=== PATIENT | male | born 1990 | race Two or more races ===

== ENCOUNTER 2018-07-02 20:41 | Observation (INO) | payer SELFPAY ==
[2018-07-03] MEDS ORDERED: KETOROLAC TROMETHAMINE INJ/PF 30 MG/1 ML SDV IV ONE (00:52)
[2018-07-03] MEDS ORDERED: NORMAL SALINE 1000 ML 1,000 ML IV ONE (00:52)
--- NOTE | 2018-07-03 00:52 | ER Document Report ---
ED General - General Chief Complaint: Leg Pain Stated Complaint: RIGHT LEG PAIN Time Seen by Provider: 07/03/18 00:00 TRAVEL OUTSIDE OF THE [place] IN LAST 30 DAYS: No - HPI Notes: Patient is a 28-year-old male with a history of gout who presents to the ED complaining of right knee pain over the last 5 days with fever over the last 3. Patient states he has noticed swelling and warmth to the knee. Patient states that he is unable to bend his knee because of the pain. He is still able to eat and drink, but does have a decreased p.o. intake. He is urinating normally and having normal bowel movements. Denies any injury. Denies any drug allergies. Patient states that he had gout in his knee once before, but this pain is a lot worse. Denies any IV drug use. Denies any headache, fever, neck pain, URI, sore throat, chest pain, palpitations, syncope, cough, shortness of breath, wheeze, dyspnea, abdominal pain, nausea/vomiting/diarrhea, urinary retention, dysuria, hematuria, urethral discharge, loss of control of bowel or bladder, numbness/tingling, saddle anesthesia, muscle paralysis/ weakness, or rash. - Related Data Allergies/Adverse Reactions: No Known Allergies Allergy (Verified 08/18/16 20:19) Past Medical History - Social History Smoking Status: Never Smoker Chew tobacco use (# tins/day): Yes Frequency of alcohol use: None Drug Abuse: None Family History: Reviewed & Not Pertinent Patient has suicidal ideation: No Patient has homicidal ideation: No - Past Medical History Cardiac Medical History: Reports: Hx Hypercholesterolemia, Hx Hypertension Renal/ Medical History: Denies: Hx Peritoneal Dialysis Musculoskeletal Medical History: Reports Hx Gout - Bilateral ankles - Immunizations Immunizations up to date: Yes Hx Diphtheria, Pertussis, Tetanus Vaccination: Yes - 08/07/2011 Review of Systems - Review of Systems -: Yes All other systems reviewed and negative Physical Exam - Vital signs Vitals: Temp Pulse BP Pulse Ox 98.5 F 121 H 149/96 H 96 07/02/18 21:01 07/02/18 21:01 07/02/18 21:01 07/02/18 21:01 - Notes Notes: PHYSICAL EXAMINATION: GENERAL: Well-appearing, well-nourished and in no acute distress. LUNGS: Breath sounds clear to auscultation bilaterally and equal. No wheezes rales or rhonchi. HEART: Regular rate and rhythm without murmurs, rubs, gallops. Musculoskeletal: Rt knee: + swelling, mild erythema, warmth, and tenderness associated. No obvious ecchymosis or deformity. LROM to passive/active. Strength 5+/5. N/V intact distal. No bony tenderness. No calf tenderness. Extremities: No cyanosis, clubbing, or edema b/l. Peripheral pulses 2+. Capillary refill less than 3 seconds. Noy neg b/l. NEUROLOGICAL: Normal speech. Normal sensory. PSYCH: Normal mood, normal affect. SKIN: see above. Course - Re-evaluation Re-evalutation: 07/03/18 00:51 Pt is tachycardic at 120 during my eval with a warm tender left knee with limited range of motion. Concern for septic joint vs gout. We will obtain labs and imaging to further evaluate. 07/03/18 03:58 XR unremarkable. Noted effusion on exam. CRP and ESR significantly elevated with white count of 19 and febrile at 100.4 tylenol ordered. Reviewed with Dr. treviño- we will attempt knee tap for fluid testing. 07/03/18 05:34 Dr. Treviño and myself were unsuccessful at the joint tap. Consulted Dr. Rouse who will be in to eval the patient soon. 07/03/18 06:46 Dr. Rouse eval'd the patient and will keep for obs. Pt in agreement. - Vital Signs Vital signs: Temp Pulse Resp BP Pulse Ox 100.4 F 109 H 16 140/82 H 96 07/03/18 01:34 07/03/18 01:34 07/03/18 01:34 07/03/18 01:34 07/03/18 01:34 - Laboratory Result Diagrams: 07/03/18 01:35 07/03/18 01:35 Laboratory results interpreted by me: 07/03/18 07/03/18 01:35 01:35 WBC 19.0 H Absolute Neutrophils 14.4 H ESR 77 H Chloride 96 L Glucose 113 H Calcium 10.3 H Total Bilirubin 1.9 H Direct Bilirubin 0.9 H C-Reactive Protein 230.8 H Total Protein 8.7 H Discharge - Discharge Clinical Impression: Right knee pain Qualifiers: Chronicity: acute Qualified Code(s): M25.561 - Pain in right knee Condition: Stable Disposition: ADMITTED OBSERVATION Admitting Provider: Dr. Rouse, Ortho Unit Admitted: Surgical Floor
[2018-07-03 01:50] LABS: ABSOLUTE BASOPHILS # (AUTO) 0.1 10^3/uL (0.0-0.2); ABSOLUTE LYMPHOCYTES (AUTO) 3.1 10^3/uL (0.5-4.7); ABSOLUTE MONOCYTES (AUTO) 1.4 10^3/uL (0.1-1.4); ABSOLUTE NEUT (AUTO) 14.4 10^3/uL (1.7-8.2); BASOPHILS % (AUTO) 0.4 % (0-2); EOSINOPHILS % (AUTO) 0.1 % (0-6); HEMATOCRIT 42.5 % (37.9-51.0); HEMOGLOBIN 14.7 g/dL (13.5-17.0); LYMPHOCYTES % (AUTO) 16.5 % (13-45); MEAN CORPUSCULAR HEMOGLOBIN 28.5 pg (27.0-33.4); MEAN CORPUSCULAR HGB CONC 34.7 g/dL (32.0-36.0); MEAN CORPUSCULAR VOLUME 82 fl (80-97); MONOCYTES % (AUTO) 7.1 % (3-13); PLATELET COUNT 198 10^3/uL (150-450); RED BLOOD COUNT 5.16 10^6/uL (4.35-5.55); RED CELL DISTRIBUTION WIDTH 13.8 % (11.5-14.0); SEGMENTED NEUTROPHILS % (AUTO) 75.9 % (42-78); TOTAL CELLS COUNTED % (AUTO) 100 %
--- NOTE | 2018-07-03 02:01 | RADIOLOGY REPORT (SQ) ---
EXAM DESCRIPTION: XR KNEE 4 OR MORE VIEWS COMPLETED DATE/TME: 07/03/2018 00:44 CLINICAL HISTORY: 28 years, Male, swelling, pain, warmth COMPARISON: None. NUMBER OF VIEWS: Four TECHNIQUE: Four views of the right knee LIMITATIONS: None. FINDINGS: No acute fracture or dislocation. Joint spaces are preserved. No large joint effusion is detected. IMPRESSION: No acute fracture or dislocation 2010 [employer]- All Rights Reserved
[2018-07-03 02:36] LABS: ERYTHROCYTE SEDIMENTATION RATE 77 mm/hr (0-15)
[2018-07-03 02:52] LABS: ALANINE AMINOTRANSFERASE 44 U/L (21-72); ALBUMIN 4.5 g/dL (3.5-5.0); ALKALINE PHOSPHATASE 94 U/L (38-126); ANION GAP 17 (5-19); ASPARTATE AMINO TRANSFERASE 34 U/L (17-59); BILIRUBIN,DIRECT 0.9 mg/dL (0.0-0.4); BILIRUBIN,TOTAL 1.9 mg/dL (0.2-1.3); BLOOD UREA NITROGEN 9 mg/dL (7-20); CALCIUM 10.3 mg/dL (8.4-10.2); CARBON DIOXIDE 25 mmol/L (22-30); CHLORIDE 96 mmol/L (98-107); GLUCOSE 113 mg/dL (75-110); POTASSIUM 4.8 mmol/L (3.6-5.0); SODIUM 137.5 mmol/L (137-145); TOTAL PROTEIN 8.7 g/dL (6.3-8.2)
[2018-07-03 03:13] LABS: C-REACTIVE PROTEIN 230.8 mg/L (<10.0)
[2018-07-03] MEDS ORDERED: ACETAMINOPHEN 325 MG TABLET PO ONE (03:55)
[2018-07-03] MEDS ORDERED: LIDOCAINE 1% INJ-PF (10 MG/ML) 30 ML SDV INJ ONE (03:56)
[2018-07-03] MEDS ORDERED: ONDANSETRON 4 MG TAB.RAPDIS SL PRN (07:14)
[2018-07-03] MEDS: RINGERS SOLUTION,LACTATED 1,000 ML IV PRN ×3 (07:59→23:40)
[2018-07-03] MEDS: IBUPROFEN 800 MG in NORMAL SALINE 250 ML IV SCH ×2 (09:35→17:41)
[2018-07-04] MEDS: IBUPROFEN 800 MG in NORMAL SALINE 250 ML IV SCH ×3 (02:06→18:34)
--- NOTE | 2018-07-04 06:01 | PDOC PROGRESS REPORT ---
Subjective Progress Note for:: 07/04/18 Reason For Visit: RIGHT KNEE PAIN Right knee pain and functional disability. Suspected underlying gout arthropathy. Patient reports slight improvement from yesterday on IV Caldolor. Physical Exam Vital Signs: Temp Pulse Resp BP Pulse Ox 36.7 C 78 18 130/80 H 100 07/04/18 00:00 07/04/18 00:00 07/04/18 00:00 07/04/18 00:00 07/04/18 00:00 Intake & Output 07/02/18 07/03/18 07/04/18 06:59 06:59 06:59 Intake Total 2500 Output Total 300 Balance 2200 Physical Exam: Overweight middle-aged male lying in bed with the right upper extremity and knee elevated on a pillow and slightly flexed. General appearance: PRESENT: no acute distress, mild distress, well-nourished Head exam: PRESENT: normocephalic Respiratory exam: PRESENT: unlabored Cardiovascular exam: PRESENT: RRR Pulses: PRESENT: +1 pedal pulses bilateral Vascular exam: PRESENT: normal capillary refill GI/Abdominal exam: PRESENT: soft Rectal exam: PRESENT: deferred Extremities exam: PRESENT: other - Right lower extremity elevated on a pillow and flexed. Passive range of motion seems to be improved from yesterday. There is no erythema. Distal neurovascular examination is intact. Neurological exam: PRESENT: alert, awake, oriented to person, oriented to place , oriented to time, oriented to situation. ABSENT: motor sensory deficit Psychiatric exam: PRESENT: appropriate affect, normal mood. ABSENT: homicidal ideation, suicidal ideation Skin exam: PRESENT: dry, intact, warm. ABSENT: cyanosis, rash Results Impressions: Knee X-Ray 07/03/18 00:44 IMPRESSION: No acute fracture or dislocation 2010 [employer]- All Rights Reserved Status: Imported from PACS Assessment & Plan - Diagnosis (1) Acute gouty arthropathy Is this a current diagnosis for this admission?: Yes Plan: 28-year-old male with a previous history of gout and now with what appears to be an acute arthropathy of the right knee. Differential diagnosis includes gout arthropathy versus a septic polyarthritis. At this point the patient's laboratory values seem to be stable and he remains afebrile. There is been a slight improvement on IV nonsteroidal anti-inflammatory medication. Plan will be to continue observation and begin physical therapy. - Time Time Spent with patient: 15-24 minutes Anticipated discharge: Home Within: Other
[2018-07-04] MEDS: MORPHINE SULFATE 10 MG/ML INJ IV PRN (08:08)
[2018-07-04] MEDS: RINGERS SOLUTION,LACTATED 1,000 ML IV PRN (21:37)
[2018-07-05] MEDS: IBUPROFEN 800 MG in NORMAL SALINE 250 ML IV SCH ×2 (01:33→10:25)
--- NOTE | 2018-07-05 06:50 | PDOC PROGRESS REPORT ---
Subjective Progress Note for:: 07/05/18 Reason For Visit: RIGHT KNEE PAIN 28-year-old male with an resumed acute gouty arthropathy of the right knee. Patient's been started on IV nonsteroidal anti-inflammatory medication with minimal improvement in his clinical presentation and passive range of motion of his knee. He remains afebrile. Physical Exam Vital Signs: Temp Pulse Resp BP Pulse Ox 37.0 C 82 18 130/76 H 100 07/05/18 03:34 07/05/18 03:34 07/05/18 03:34 07/05/18 03:34 07/05/18 03:34 Intake & Output 07/03/18 07/04/18 07/05/18 06:59 06:59 06:59 Intake Total 4230 2879 Output Total 1500 1125 Balance 2730 1754 General appearance: PRESENT: no acute distress, mild distress, well-developed Head exam: PRESENT: normocephalic Respiratory exam: PRESENT: unlabored Cardiovascular exam: PRESENT: RRR Extremities exam: PRESENT: other - Passive range of motion of the right knee remains painful. Results Impressions: Knee X-Ray 07/03/18 00:44 IMPRESSION: No acute fracture or dislocation 2010 [employer] All Rights Reserved Status: Imported from PACS Assessment & Plan - Diagnosis (1) Acute gouty arthropathy Is this a current diagnosis for this admission?: Yes Plan: Patient with not a clear improvement in his clinical presentation. Patient will be started on Indocin and labs will be repeated. - Time Time Spent with patient: 15-24 minutes Anticipated discharge: Other Within: Other
[2018-07-05] MEDS: MORPHINE SULFATE 10 MG/ML INJ IV PRN (07:08)
[2018-07-05 07:40] LABS: ABSOLUTE BASOPHILS # (AUTO) 0.1 10^3/uL (0.0-0.2); ABSOLUTE EOSINOPHILS # (AUTO) 0.1 10^3/uL (0.0-0.6); ABSOLUTE LYMPHOCYTES (AUTO) 3.2 10^3/uL (0.5-4.7); ABSOLUTE MONOCYTES (AUTO) 0.6 10^3/uL (0.1-1.4); ABSOLUTE NEUT (AUTO) 6.7 10^3/uL (1.7-8.2); BASOPHILS % (AUTO) 0.7 % (0-2); EOSINOPHILS % (AUTO) 1.3 % (0-6); HEMATOCRIT 34.9 % (37.9-51.0); LYMPHOCYTES % (AUTO) 29.7 % (13-45); MEAN CORPUSCULAR HEMOGLOBIN 28.6 pg (27.0-33.4); MEAN CORPUSCULAR HGB CONC 34.9 g/dL (32.0-36.0); MEAN CORPUSCULAR VOLUME 82 fl (80-97); MONOCYTES % (AUTO) 5.7 % (3-13); PLATELET COUNT 165 10^3/uL (150-450); RED BLOOD COUNT 4.26 10^6/uL (4.35-5.55); RED CELL DISTRIBUTION WIDTH 13.7 % (11.5-14.0); SEGMENTED NEUTROPHILS % (AUTO) 62.6 % (42-78); TOTAL CELLS COUNTED % (AUTO) 100 %; WHITE BLOOD COUNT 10.6 10^3/uL (4.0-10.5)
[2018-07-05 07:43] LABS: HEMOGLOBIN 12.2 g/dL (13.5-17.0)
[2018-07-05 07:59] LABS: ANION GAP 8 (5-19); BLOOD UREA NITROGEN 10 mg/dL (7-20); C-REACTIVE PROTEIN 63.8 mg/L (<10.0); CALCIUM 9.4 mg/dL (8.4-10.2); CARBON DIOXIDE 28 mmol/L (22-30); CHLORIDE 103 mmol/L (98-107); GLUCOSE 99 mg/dL (75-110); POTASSIUM 4.4 mmol/L (3.6-5.0); SODIUM 138.9 mmol/L (137-145)
[2018-07-05 08:26] LABS: ERYTHROCYTE SEDIMENTATION RATE 66 mm/hr (0-15)
[2018-07-05] MEDS: INDOMETHACIN 50 MG CAPSULE PO SCH ×2 (14:52→22:10)
[2018-07-06] MEDS: INDOMETHACIN 50 MG CAPSULE PO SCH ×2 (05:40→13:19)
[2018-07-06] MEDS: MORPHINE SULFATE 10 MG/ML INJ IV PRN (08:11)
[2018-07-06 13:11] VITALS: BP 134/79
--- NOTE | 2018-07-06 13:52 | PDOC PROGRESS REPORT ---
Subjective Progress Note for:: 07/06/18 Subjective:: Patient states significant improvement since taking indomethacin. Describes swelling to be significantly improved. Able to ambulate without excruciating pain he had before. Patient is ready to be discharged today. Reason For Visit: RIGHT KNEE PAIN Physical Exam Vital Signs: Temp Pulse Resp BP Pulse Ox 37.1 C 79 18 134/79 H 98 07/06/18 12:45 07/06/18 12:45 07/06/18 12:45 07/06/18 12:45 07/06/18 12:45 Intake & Output 07/05/18 07/06/18 07/07/18 06:59 06:59 06:59 Intake Total 3546 650 Output Total 1725 1300 Balance 1821 -650 Adult Front & Back Image: 1 - Patient is some mild soreness with palpation but stable to varus and valgus stressing and able to extend to about -10 degrees of extension to about 90 degrees of flexion. Some mild swelling around the knee but no palpable effusion noted. He is neurovascular intact distally. Results Laboratory Results: 07/05/18 07:20 07/05/18 07:20 Impressions: Knee X-Ray 07/03/18 00:44 IMPRESSION: No acute fracture or dislocation 2010 [employer]- All Rights Reserved Assessment & Plan - Diagnosis (1) Acute gouty arthropathy Is this a current diagnosis for this admission?: Yes Plan: 28-year-old gentleman who responded to p.o. indomethacin and previous to that IV Caldolor. Agree with that the patient's clinical improvement is unlikely to gouty arthropathy that responded to medication. Patient can be discharged today. Prescription for indomethacin will be provided and the patient understands to follow-up in 1-[address] Rouse.
[2018-07-06 14:05] LABS: ABSOLUTE EOSINOPHILS # (AUTO) 0.2 10^3/uL (0.0-0.6); ABSOLUTE LYMPHOCYTES (AUTO) 2.3 10^3/uL (0.5-4.7); ABSOLUTE MONOCYTES (AUTO) 0.6 10^3/uL (0.1-1.4); ABSOLUTE NEUT (AUTO) 5.2 10^3/uL (1.7-8.2); BASOPHILS % (AUTO) 0.5 % (0-2); EOSINOPHILS % (AUTO) 1.9 % (0-6); HEMATOCRIT 34.7 % (37.9-51.0); HEMOGLOBIN 11.9 g/dL (13.5-17.0); LYMPHOCYTES % (AUTO) 27.5 % (13-45); MEAN CORPUSCULAR HEMOGLOBIN 28.3 pg (27.0-33.4); MEAN CORPUSCULAR HGB CONC 34.4 g/dL (32.0-36.0); MEAN CORPUSCULAR VOLUME 82 fl (80-97); MONOCYTES % (AUTO) 7.2 % (3-13); PLATELET COUNT 181 10^3/uL (150-450); RED BLOOD COUNT 4.22 10^6/uL (4.35-5.55); RED CELL DISTRIBUTION WIDTH 13.2 % (11.5-14.0); SEGMENTED NEUTROPHILS % (AUTO) 62.9 % (42-78); TOTAL CELLS COUNTED % (AUTO) 100 %; WHITE BLOOD COUNT 8.3 10^3/uL (4.0-10.5)
[2018-07-06 14:31] LABS: ANION GAP 7 (5-19); BLOOD UREA NITROGEN 10 mg/dL (7-20); C-REACTIVE PROTEIN 49.5 mg/L (<10.0); CALCIUM 9.2 mg/dL (8.4-10.2); CARBON DIOXIDE 32 mmol/L (22-30); CHLORIDE 101 mmol/L (98-107); GLUCOSE 83 mg/dL (75-110); POTASSIUM 4.3 mmol/L (3.6-5.0); SODIUM 140.1 mmol/L (137-145); URIC ACID 7.9 mg/dL (3.5-8.5)
[2018-07-06 14:43] LABS: ERYTHROCYTE SEDIMENTATION RATE 66 mm/hr (0-15)
== END 2018-07-06 15:16 | disposition home or self-care (01) ==
LOC: ER 20:41 → INTOOBSV 07-03 06:53 → EH 07-03 06:53 → OBSVTOIN 07-03 06:53 → 2S 07-03 12:45
PROVIDERS: ADMIT Orthopaedic Surgery; ATTEND Orthopaedic Surgery
DX: M10.9 Gout, unspecified (principal); E66.3 Overweight; R00.0 Tachycardia, unspecified; Z68.42 Body mass index [BMI] 45.0-49.9, adult; Z72.0 Tobacco use; Z87.39 Personal history of other diseases of the musculoskeletal system and connective tissue
CPT/HCPCS: 99284; 96374; 36415 ×3; 87040; 87205; 87070; 84550; 85025 ×3; 85652 ×3; 87075; 86140 ×3; 80048 ×2; 80053; 73564; 97110; 97116; 97163; G0378 ×5; J3490 ×3; J1885; J2270 ×3; J7050 ×2; J1741 ×2

== ENCOUNTER 2019-08-10 01:28 | Emergency (ER) | payer SELFPAY ==
--- NOTE | 2019-08-10 01:21 | ER Document Report ---
ED Hand/Wrist Injury - General Chief Complaint: Hand Swelling Stated Complaint: RIGHT HAND SWOLLEN/PAIN Time Seen by Provider: 08/10/19 01:08 EST Primary Care Provider: JOSÉ MIGUEL BRYANT DO [ACTIVE STAFF] - 08/11/19 Mode of Arrival: Ambulatory Information source: Patient Notes: Patient presents complaining of right hand pain swelling and redness. Patient denies any injury. Patient is right-hand dominant. Patient does report a history of gout although he has never had gout affect the joints of his hand before. Patient denies any fever. TRAVEL OUTSIDE OF THE [place] IN LAST 30 DAYS: No - HPI Injury to: Hand Onset: Other - 3 days Timing: Worse Quality of pain: Achy Pain Level: 3 Context: Swelling - Related Data Allergies/Adverse Reactions: No Known Allergies Allergy (Verified 08/18/16 20:19) Home Medications: Allopurinol Past Medical History - General Information source: Patient - Social History Smoking Status: Never Smoker Frequency of alcohol use: None Drug Abuse: None Occupation: agriculture mechanic Lives with: Family Family History: Reviewed & Not Pertinent Patient has suicidal ideation: No Patient has homicidal ideation: No - Past Medical History Cardiac Medical History: Reports: Hx Hypercholesterolemia, Hx Hypertension Renal/ Medical History: Denies: Hx Peritoneal Dialysis Musculoskeletal Medical History: Reports Hx Gout - Bilateral ankles Psychiatric Medical History: Denies: Hx Depression Surgical Hx: Negative - Immunizations Immunizations up to date: Yes Hx Diphtheria, Pertussis, Tetanus Vaccination: Yes - 08/07/2011 Review of Systems - Review of Systems Constitutional: No symptoms reported. denies: Fever, Recent illness EENT: No symptoms reported Cardiovascular: No symptoms reported Respiratory: No symptoms reported Gastrointestinal: No symptoms reported. denies: Nausea, Vomiting Genitourinary: No symptoms reported Male Genitourinary: No symptoms reported Musculoskeletal: Gout, Other - Right hand pain and swelling Skin: Change in color - Erythema the right hand Hematologic/Lymphatic: No symptoms reported Neurological/Psychological: No symptoms reported Physical Exam - Vital signs Vitals: Temp Pulse Resp BP Pulse Ox 98.0 F 75 20 170/113 H 98 08/10/19 01:33 EDT 08/10/19 01:33 EDT 08/10/19 01:33 EDT 08/10/19 01:33 EDT 08/10/19 01:33 EDT - General General appearance: Appears well, Alert In distress: None - HEENT Head: Normocephalic, Atraumatic Eyes: Normal Nasal: Normal Mouth/Lips: Normal Neck: Normal - Respiratory Respiratory status: No respiratory distress - Cardiovascular Pulses: Normal: Radial - Back Back: Normal - Extremities General upper extremity: Tender - right hand General lower extremity: Normal inspection, Normal strength Shoulder: Normal, Nontender Arm: Normal, Nontender Elbow: Normal, Nontender Forearm: Normal, Nontender Wrist: Normal, Nontender Hand: Tender - Right hand tenderness over the second third and fourth metacarpals with overlying erythema and edema, Swelling. No: Deformity, Laceration, Nail injury, Tendon deficit - Neurological Neuro grossly intact: Yes Cognition: Normal [place] Coma Scale Eye Opening: Spontaneous [place] Coma Scale Verbal: Oriented [place] Coma Scale Motor: Obeys Commands [place] Coma Scale Total: 15 - Psychological Associated symptoms: Normal affect, Normal mood - Skin Skin Temperature: Warm Skin Moisture: Dry Skin Color: Erythema - Erythema with calor over the dorsal aspect of right hand over the second third and fourth metacarpals Course - Re-evaluation Re-evalutation: 08/10/19 03:15 Patient with erythema and calor to the right hand. 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 Patient without any obvious injury to the hand. Patient without any fever and is nontoxic in appearance. No concern for tenosynovitis at this time. No concern for fracture or osteomyelitis. Patient advised of symptoms that he should return immediately for. Patient verbalized understanding and is agreeable plan of care. Consulted with Dr. Hess regarding patient's disposition and plan of care. - Vital Signs Vital signs: Temp Pulse Resp BP Pulse Ox 98.6 F 64 16 128/74 H 98 08/10/19 04:09 08/10/19 04:09 08/10/19 04:09 08/10/19 04:09 08/10/19 03:01 - Laboratory Result Diagrams: 08/10/19 01:33 EST 08/10/19 01:33 EST Laboratory results interpreted by me: 08/10/19 08/10/19 01:33 EST 01:33 EST WBC 10.9 H ESR 27 H Glucose 119 H C-Reactive Protein 39.4 H Labs- Entire Visit 08/10/19 08/10/19 01:33 EST 01:33 EST WBC 10.9 H RBC 4.94 Hgb 13.9 Hct 40.2 MCV 81 MCH 28.1 MCHC 34.6 RDW 12.9 Plt Count 172 Lymph % (Auto) 23.7 [place] % (Auto) 6.0 Eos % (Auto) 1.0 Baso % (Auto) 0.3 Absolute Neuts (auto) 7.5 Absolute Lymphs (auto) 2.6 Absolute Monos (auto) 0.7 Absolute Eos (auto) 0.1 Absolute Basos (auto) 0.0 Seg Neutrophils % 69.0 ESR 27 H Sodium 137.6 Potassium 4.0 Chloride 102 Carbon Dioxide 26 Anion Gap 10 BUN 13 Creatinine 0.76 Est GFR ( Amer) > 60 Est GFR (MDRD) Non-Af > 60 Glucose 119 H Uric Acid 8.2 Calcium 9.5 C-Reactive Protein 39.4 H - Diagnostic Test Radiology reviewed: Reports reviewed Discharge - Discharge Clinical Impression: Right hand pain, Hx of gout Cellulitis Qualifiers: Site of cellulitis: extremity Site of cellulitis of extremity: upper extremity Laterality: right Qualified Code(s): L03.113 - Cellulitis of right upper limb Condition: Stable Disposition: HOME, SELF-CARE Instructions: Cellulitis ([facility]), Cephalexin ([facility]), Gout ([facility]), Gout Diet ([facility]), Oral Narcotic Medication ([facility]), Rocephin ([facility]) Additional Instructions: Return immediately for any new or worsening symptoms: Increased pain, increased swelling, increased redness, lack of improvement or any worrisome symptoms Followup with your primary care provider, call tomorrow to make a followup ap pointment Keep hand elevated as much as possible to help with the swelling Prescriptions: Prednisone [Deltasone 20 mg Tablet] 2 tab PO DAILY 5 Days tablet Cephalexin Monohydrate [Keflex 500 mg Capsule] 500 mg PO Q6H 7 Days capsule Hydrocodone/Acetaminophen [[place] 5-325 mg Tablet] 1 tab PO Q6 PRN #12 tablet PRN Reason: Referrals: JOSÉ MIGUEL BRYANT DO [ACTIVE STAFF] - 08/11/19
[~2019-08-10 01:28] MED LIST: FENTANYL CITRATE INJ/PF 100 MCG/2 ML AMPUL IV ONE; KETOROLAC TROMETHAMINE INJ/PF 30 MG/1 ML SDV IV ONE
[2019-08-10 02:01] LABS: ABSOLUTE EOSINOPHILS # (AUTO) 0.1 10^3/uL (0.0-0.6); ABSOLUTE LYMPHOCYTES (AUTO) 2.6 10^3/uL (0.5-4.7); ABSOLUTE MONOCYTES (AUTO) 0.7 10^3/uL (0.1-1.4); ABSOLUTE NEUT (AUTO) 7.5 10^3/uL (1.7-8.2); BASOPHILS % (AUTO) 0.3 % (0-2); HEMATOCRIT 40.2 % (37.9-51.0); HEMOGLOBIN 13.9 g/dL (13.5-17.0); LYMPHOCYTES % (AUTO) 23.7 % (13-45); MEAN CORPUSCULAR HEMOGLOBIN 28.1 pg (27.0-33.4); MEAN CORPUSCULAR HGB CONC 34.6 g/dL (32.0-36.0); MEAN CORPUSCULAR VOLUME 81 fl (80-97); PLATELET COUNT 172 10^3/uL (150-450); RED BLOOD COUNT 4.94 10^6/uL (4.35-5.55); RED CELL DISTRIBUTION WIDTH 12.9 % (11.5-14.0); TOTAL CELLS COUNTED % (AUTO) 100 %; WHITE BLOOD COUNT 10.9 10^3/uL (4.0-10.5)
[2019-08-10 02:06] LABS: ANION GAP 10 (5-19); BLOOD UREA NITROGEN 13 mg/dL (7-20); CALCIUM 9.5 mg/dL (8.4-10.2); CARBON DIOXIDE 26 mmol/L (22-30); CHLORIDE 102 mmol/L (98-107); GLUCOSE 119 mg/dL (75-110); URIC ACID 8.2 mg/dL (3.5-8.5)
[2019-08-10 02:25] LABS: C-REACTIVE PROTEIN 39.4 mg/L (<10.0)
--- NOTE | 2019-08-10 02:25 | RADIOLOGY REPORT (SQ) ---
EXAM DESCRIPTION: XR HAND 3 OR MORE VIEWS COMPLETED DATE/TME: 08/10/2019 01:18 CLINICAL HISTORY: 29 years, Male, right hand pain, swelling COMPARISON: None. NUMBER OF VIEWS: 3 TECHNIQUE: 3 views right hand LIMITATIONS: None. FINDINGS: Dorsal soft tissue swelling. Negative for acute fracture or dislocation. No soft tissue gas IMPRESSION: Soft tissue swelling. No acute osseous abnormality copyright 2010 [employer]- All Rights Reserved
[2019-08-10 02:46] LABS: ERYTHROCYTE SEDIMENTATION RATE 27 mm/hr (0-15)
[2019-08-10] MEDS ORDERED: PREDNISONE 20 MG TABLET PO ONE (02:57)
[2019-08-10] MEDS ORDERED: CEFTRIAXONE 1 GM/D5W RTU 1 GM/50 ML RTUPB IV ONE (02:57)
[2019-08-10 04:11] VITALS: BP 128/74
== END 2019-08-10 04:09 | disposition home or self-care (01) ==
LOC: ER 01:28
DX: L03.113 Cellulitis of right upper limb (principal); M79.641 Pain in right hand; M10.9 Gout, unspecified; E78.00 Pure hypercholesterolemia, unspecified; I10 Essential (primary) hypertension
CPT/HCPCS: 99283; 96375; 96365; 36415; 87040; 84550; 85025; 85652; 86140; 80048; 73130; J3010; J7512; J0696